=== PATIENT | female | born 1995 | race Caucasian/White ===

== ENCOUNTER 2023-12-27 07:41 | Inpatient (IN) ==
[2023-12-27] MEDS ORDERED: LIDOCAINE 1% LOCAL 20 ML VIAL INFIL PRN (08:28)
[2023-12-27] MEDS ORDERED: OXYTOCIN 30 UNITS/NSS 30 UNITS/500 ML BAG IV PRN (08:28)
--- NOTE | 2023-12-27 08:43 | History & Physical Report ---
Date of Service December 27, 2023 Assessment & Plan (1) Encounter for induction of labor: Plan: 28 years G1 at 40w4d WOG here for IOL today. -No leakage -BG: A+/ GBS neg IOL: Powell's kept yesterday evening; planned for Pitocin IOL today. Pitocin as per protocol. 9:30am: 4 cm, AROM was attempted by Dr. Melendez -FHT: Category 1 -No established risk factors. -Will reassess regularly Admission and Anticipated Discharge Date Admission Date: December 27, 2023 History of Present Illness Chief Complaint: G1 at 40+3 weeks POG here for IOL Primary Care Provider: NO PCP G1 at 40+3 weeks EGA here for IOL. Planned IOL, Powell Bulb kept yesterday, here for Pitocin IOL today. Vitals: BP: 134/89 MM Hg ( 100/60 -140/100) Pulse: 102- 105/min FHT monitor: In Place (Category 1) Contraction:+mild BG: A +ve/ GBS: -ve No other risk factors Echo done ANC (family h/o Bicuspid Aortic Valve): Mid Pulmonary Valve Insuffciency, Recommends PP Echo for infant Recent Ob USG: Cephalic/Posterior Placenta/DVP:WNL/EFW:42% Allergies Allergy/AdvReac Type Severity Reaction Status Date / Time No Known Allergies Allergy Verified 12/24/23 09:57 Home Medications Medication Instructions Recorded Confirmed Type PNV [id number] PO 05/08/23 12/24/23 History [ Gummies] Patient History Medical History (Updated 12/27/23 @ 08:48 by Arlene Tellez MD) Perioral dermatitis (01/29/23) Family history of bicuspid aortic valve (01/29/23) Body mass index [BMI] 23.0-23.9, adult (01/29/23) Acne Surgical History No history of previous surgery Family History (Updated 05/08/23 @ 10:53 by Soraida Dyson) Denies family history of Ovarian cancer Breast cancer Colorectal cancer Social History (Updated 05/08/23 @ 10:54 by Soraida Dyson) Smoking Status: Never smoker Do You Dip or Chew Tobacco: No; Hx Alcohol Use: No Hx Substance Use: No Preferred Language: Sami Communication Ability: Effective Social Welfare Clerk Required: No Beliefs That Will Affect Care: None marital status: marital status details: Timmy Vargas (27) [phone] Current Living Situation: Spouse Current Living Situation Comment: lives with spouse, dog current occupational status: employed 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 Denies SOB, difficulty breathing, chest pain, palpitations, and chest pressure. Denies breast pain. Denies dysuria. Denies headache or changes in vision. Physical Exam Physical Exam: General: Alert and oriented. No acute distress CV: Regular rate and rhythm. No murmurs. Respiratory: CTA bilaterally. No rhonchi, wheezes, or crackles. No increased work of breathing. Abdomen: Gravid; Soft, nontender upon palpation Pelvic: Dilated [address] Melendez Lower extremities: mild LE edema. No deep calf pain. Clay's negative bilaterally. Results & Data Vital Signs (Past 12 Hours) Vital Signs Temp Pulse Resp BP 12/27/23 08:26 36.8 C 20 12/27/23 08:04 105 H 134/89 Supervising Physician Co-Signing Physician Notes Resident Physician Supervision Note: I was present with Dr. Tellez during the history and exam. I discussed the case with the resident and agree with the findings and plan as documented in the note. Any exceptions or clarifications are listed here: 28yo at 40+wks for planned induction. Doing well. No rom. No vb. No ctx. Had powell last pm and it fell out. PNC uncomplicated, due to family history of bicuspid aortic valve echo done and ? mild PV insufficiency, reeval pp and maternal echo was wnl. PNL Rh pos, RI, GBS NEG Abd soft gravid nt, efw 7-8#. ext tr edema. nt calves. FHTs categ 1. No ctx. sve 4/50/-2 arom, min fluid. Pt admitted. Pitocin induction. Epidural when desires. FHTs categ 1. Documented By: Adry Melendez MD, FACOG
[2023-12-27 09:07] LABS: Hematocrit (blood only) 32.4 % (37.0-47.0); Hemoglobin 11.4 g/dl (12.0-16.0); Mean Corpuscular Hemoglobin 31.7 pg (25.0-34.0); Mean Corpuscular Hgb Conc 35.2 g/dL (32.0-36.0); Platelet Count 124 K/uL (130-400); RDW Coefficient of Variation 13.1 % (11.5-14.5); RDW Standard Deviation 43.3 fL (36.4-46.3); White Blood Count 9.55 K/ul (4.8-10.8)
[2023-12-27] MEDS: LACTATED RINGER'S 1,000 ML IV PRN (09:23)
[2023-12-27] MEDS: OXYTOCIN 30 UNITS/NSS 30 UNITS/500 ML BAG IV PRN ×2 (10:17→23:17)
[2023-12-27] MEDS ORDERED: NALOXONE HCL 1 MG in SODIUM CHLORIDE 0.9% 1,000 ML IV PRN (14:14)
[2023-12-27] MEDS ORDERED: SODIUM CHLORIDE 0.9% PF INJ 10 ML VIAL EPI PRN (14:14)
[2023-12-27] MEDS ORDERED: NALOXONE HCL 0.4 MG/1 ML VIAL/CARP IV PRN (14:14)
[2023-12-27] MEDS ORDERED: ROPIVACAINE 0.5% PF 5 MG/ML 20 ML VIAL EPI PRN (14:14)
[2023-12-27] MEDS ORDERED: diphenhydrAMINE 50 MG/ML VIAL IV PRN (14:14)
[2023-12-27] MEDS ORDERED: fentaNYL citrate PF 100 MCG/2 ML VIAL EPI PRN (14:14)
[2023-12-27] MEDS ORDERED: LIDOCAINE 2% MPF LOCAL 5 ML VIAL EPI PRN (14:14)
[2023-12-27] MEDS ORDERED: BUPIVACAINE 0.25% PF 30 ML VIAL EPI PRN (14:14)
[2023-12-27] MEDS ORDERED: ePHEDrine sulfate 50 MG/ML AMP IV PRN (14:14)
[2023-12-27] MEDS ORDERED: NALBUPHINE HCL 5 MG in SYRINGE 0 ML IV PRN (14:14)
--- NOTE | 2023-12-27 14:18 | Anesthesiology Consultation ---
Date of Service December 27, 2023 Assessment & Plan (1) Encounter for pre-operative examination: Chart Review Chart Review: Patient NOT seen in Pre Admission Testing and Acceptable Risk for Labor Epidural Consults Requested none History Height/Weight Height: 5 ft 7 in Weight: 87.543 kg Allergies Allergy/AdvReac Type Severity Reaction Status Date / Time No Known Allergies Allergy Verified 12/24/23 09:57 Medications Home Medications Medication Instructions Recorded Confirmed Last Taken PNV [id number] PO 05/08/23 12/24/23 12/26/23 [ Gummies] Active Medications Generic Name Dose Route Start Last Admin Trade Name Freq PRN Reason Stop Dose Admin Oxytocin 30 units in 500 mls @ 5 mls/hr 12/27/23 08:28 12/27/23 11:35 Pitocin 30 Units/Nss IV 12/29/23 08:27 0.3 units/hr .Q24H PRN 5 mls/hr Labor Induction/Augmentation Titration Protocol 0.3 UNITS/HR Lactated Ringer's 1,000 mls @ 125 mls/hr 12/27/23 08:28 12/27/23 13:28 Lr IV 12/29/23 08:27 999 mls/hr .Q8H PRN Infusion L&D Protocol Protocol Past Medical History Medical History (Updated 12/27/23 @ 14:16 by Isiah Cardozo MD) Encounter for pre-operative examination Perioral dermatitis (01/29/23) Family history of bicuspid aortic valve (01/29/23) Body mass index [BMI] 23.0-23.9, adult (01/29/23) Acne Exercise / Class Metabolic Activity II 4-5 Yardwork/Stairs/Walk up hill Past Family History Family History Denies family history of Ovarian cancer Breast cancer Colorectal cancer Past Surgical History Surgical History No history of previous surgery Past Anesthesia History No Hx of Anesthesia Complications and No Family Hx of Anesthesia Complications History of PONV No Hx of PONV and No Hx of Motion Sickness Social History Smoking Status: Never smoker Do You Dip or Chew Tobacco: No Hx Alcohol Use: No Hx Substance Use: No substance use type: does not use Physical Exam Vital Signs Last Vital Signs Temp 37.1 C 12/27/23 12:00 Pulse 96 H 12/27/23 12:49 Resp 18 12/27/23 14:00 BP 125/76 12/27/23 12:49 Testing Laboratory Results 12/27/23 08:48
[2023-12-27] MEDS: fentANYL 2 MCG/ML BUPIVacaine 0.125%-NSS 100ML BAG EPI PRN (14:23)
[2023-12-27] MEDS: fentaNYL citrate PF 100 MCG/2 ML VIAL EPI STA (14:24)
[2023-12-27] MEDS: LIDOCAINE 2%/EPINEPHRINE 1:200,000 20 ML PF EPI STA (14:24)
[2023-12-27] MEDS: BUPIVACAINE 0.25% PF 30 ML VIAL EPI STA (14:24)
[2023-12-27] MEDS: LIDOCAINE 2%/EPINEPHRINE 1:200,000 20 ML PF ONE (14:37)
[2023-12-27] MEDS: BUPIVACAINE 0.25% PF 30 ML VIAL ONE (14:37)
[2023-12-27] MEDS: fentaNYL citrate PF 100 MCG/2 ML VIAL ONE (14:37)
[2023-12-27] MEDS: SODIUM CHLORIDE 0.9% PF INJ 10 ML VIAL ONE (14:37)
[2023-12-27] MEDS: fentANYL 2 MCG/ML BUPIVacaine 0.125%-NSS 100ML BAG ONE (14:37)
[2023-12-27] MEDS: ePHEDrine sulfate 50 MG/ML AMP ONE (14:37)
[2023-12-27] MEDS: SODIUM CHLORIDE 0.9% PF INJ 10 ML VIAL EPI STA (14:41)
[2023-12-27] MEDS ORDERED: NURSING L&D Epidural Breakthrough Pain Update ONE (17:57)
[2023-12-27] MEDS: ONDANSETRON INJ 2 MG/ML 2 ML VIAL IV PRN (18:33)
--- NOTE | 2023-12-27 22:54 | Delivery Summary ---
Vaginal Delivery Summary Date of Service December 27, 2023 Vaginal Delivery Summary DIAGNOSES: 1. Pelayo intrauterine at 40w4d gestation. 2. Induction of Labor for postdates . 3. Group B Streptococcus Neg. PROCEDURE: Spontaneous vaginal delivery and repair of 1st degree posterior vaginal laceration. SURGEON: Maryana Davies MD. WOOD DRILL OPERATOR: None. QUANTITATIVE BLOOD LOSS: 321 mL. COMPLICATIONS: None. PLACENTA: Spontaneous and intact with a 3-vessel cord. DISPOSITION: Stable to labor and delivery. DESCRIPTION: The patient pushed well and brought the head to in DOA position. The 's head was allowed to deliver with contraction force and no further active pushing, with the perineum protected during this time. There was one nuchal cord. The left shoulder was anterior. The shoulders and body delivered without any difficulty, and the infant was placed on the maternal abdomen. It was vigorous and moving all extremities, and making respiratory efforts. The cord was doubly clamped by the MD and then cut by the FOB. The placenta delivered spontaneously and was noted to be intact and with a 3VC. The cervix, vagina and perineum were examined and were found to have a posterior vaginal laceration that did not extend onto the perineum, but was not hemostatic, thus was repaired with 3-0 vicryl in a running locked manner. Anorectal injury was excluded by exam. The fundus was firm and lochia minimal immediately after delivery. [facility] Vaginal Delivery Charge Vaginal Delivery Codes: 34773 global code for the antepartum, delivery, and post-
[2023-12-27] MEDS ORDERED: BENZOCAINE 20% SPRY 85 APPLN/85 GM CAN EXT PRN (22:55)
[2023-12-27] MEDS ORDERED: DIPHTHER/TETAN/PERTUS Vaccine (Tdap, Adol/Adult) 0.5mL IM ONE (22:55)
[2023-12-27] MEDS ORDERED: oxyCODONE/ACETAMINOPHEN 5mg/325mg TAB PO PRN (22:55)
[2023-12-27] MEDS ORDERED: HYDROCORTISONE ACETATE 25 MG SUPP PR PRN (22:55)
[2023-12-27] MEDS ORDERED: LACTATED RINGER'S 1,000 ML IV SCH (23:00)
[2023-12-27] MEDS: IBUPROFEN 600 MG TAB PO PRN (23:06)
[2023-12-27] MEDS: ACETAMINOPHEN 325 MG TAB PO PRN (23:06)
--- NOTE | 2023-12-28 06:25 | Obstetrical Progress Note ---
Date of Service December 28, 2023 Assessment & Plan (1) Normal labor and delivery: -8 hours PPD following Induced VD. - Passed stool/ urine : normal - Lochia: Mod - Vitals : Stabvle - Nipple soreness and cream: Adviused Lanolin cream more frequent and cotton bras instead of very tight polyster one she is using. - Likely Dis tomorrow Subjective Patient is a 28 yo fe who is now PPD #1following Induced vaginal delivery at 40+ weeks. Reports feeling well this morning. She has some abdominal cramping and pain well managed on analgesics. Voiding Normally. Tolerating regular meals overnight and able to ambulate some. She has passed gas and had bowel movem ents. Persistent lochia with some improvement this morning. Currently Breast feeding. C/O Nipple Sore and crack Review of Systems Denies fever, chills, sweats. Denies SOB, difficulty breathing, chest pain, palpitations, and chest pressure. Denies breast pain. Denies dysuria. Denies headache or changes in vision. Physical Exam General: Alert and oriented. No acute distress. CV: Regular rate and rhythm. No murmurs. Respiratory: CTA bilaterally. No rhonchi, wheezes, or crackles. No increased work of breathing. Abdomen: Positive bowel sounds. Soft, nontender, non distended. Uterus: Fundus firm and palpable few cm below the umbilicus. Lower extremities: No LE edema. Results & Data Vital Signs (Past 12 Hours) Vital Signs Temp Pulse Pulse Resp BP BP Pulse Ox 12/28/23 04:35 36.7 C 82 14 114/69 12/28/23 01:30 36.9 C 90 18 118/75 12/28/23 00:45 37.2 C 20 12/28/23 00:45 90 101/52 L 12/28/23 00:30 91 H 116/55 L 12/28/23 00:15 20 12/28/23 00:15 88 115/56 L 12/28/23 00:00 97 H 128/63 12/27/23 23:45 20 12/27/23 23:45 81 12/27/23 23:45 118/58 L 12/27/23 23:30 20 12/27/23 23:30 206 H 12/27/23 23:30 130/57 L 12/27/23 23:15 20 12/27/23 23:15 96 H 12/27/23 23:15 133/69 12/27/23 23:06 93 H 12/27/23 23:06 128/62 12/27/23 23:00 18 12/27/23 22:45 20 12/27/23 22:45 109 H 12/27/23 22:45 144/65 H 12/27/23 22:43 83 L 12/27/23 22:43 111 H 12/27/23 22:41 86 L 12/27/23 22:41 114 H 12/27/23 22:38 100 12/27/23 22:38 114 H 12/27/23 22:38 153/69 H 12/27/23 22:33 100 12/27/23 22:33 112 H 12/27/23 22:28 100 12/27/23 22:28 101 H 12/27/23 22:26 86 L 12/27/23 22:26 148 H 12/27/23 22:23 100 12/27/23 22:23 123 H 12/27/23 22:23 119/57 L 12/27/23 22:15 82 L 12/27/23 22:15 117 H 12/27/23 22:10 81 L 12/27/23 22:10 117 H 12/27/23 22:05 100 12/27/23 22:05 96 H 12/27/23 22:00 100 12/27/23 22:00 95 H 12/27/23 21:55 100 12/27/23 21:55 90 12/27/23 21:53 93 H 12/27/23 21:53 117/60 12/27/23 21:50 100 12/27/23 21:50 92 H 12/27/23 21:45 100 12/27/23 21:45 90 12/27/23 21:40 100 12/27/23 21:40 90 12/27/23 21:38 91 H 12/27/23 21:38 121/64 12/27/23 21:35 100 12/27/23 21:35 90 12/27/23 21:30 20 12/27/23 21:30 20 12/27/23 21:30 100 12/27/23 21:30 93 H 12/27/23 21:25 97 12/27/23 21:25 99 H 12/27/23 21:25 86 12/27/23 21:25 133/71 12/27/23 21:20 96 12/27/23 21:20 94 H 12/27/23 21:15 100 12/27/23 21:15 100 H 12/27/23 21:10 100 12/27/23 21:10 101 H 12/27/23 21:08 110 H 12/27/23 21:08 134/72 12/27/23 21:05 100 12/27/23 21:05 103 H 12/27/23 21:00 20 12/27/23 21:00 37.3 C 20 12/27/23 21:00 100 12/27/23 21:00 98 H 12/27/23 20:55 100 12/27/23 20:55 108 H 12/27/23 20:55 103 H 12/27/23 20:55 127/76 12/27/23 20:50 100 12/27/23 20:50 104 H 12/27/23 20:45 100 12/27/23 20:45 96 H 12/27/23 20:40 100 12/27/23 20:40 91 H 12/27/23 20:38 118 H 12/27/23 20:38 100/65 12/27/23 20:35 100 12/27/23 20:35 95 H 12/27/23 20:30 20 12/27/23 20:30 20 12/27/23 20:30 100 12/27/23 20:30 90 12/27/23 20:25 100 12/27/23 20:25 88 12/27/23 20:23 96 H 12/27/23 20:23 110/62 12/27/23 20:20 100 12/27/23 20:20 87 12/27/23 20:15 100 12/27/23 20:15 98 H 12/27/23 20:10 100 12/27/23 20:10 96 H 12/27/23 20:08 93 H 12/27/23 20:08 110/64 12/27/23 20:05 100 12/27/23 20:05 94 H 12/27/23 20:00 18 12/27/23 20:00 18 12/27/23 20:00 100 12/27/23 20:00 92 H 12/27/23 19:55 100 12/27/23 19:55 98 H 12/27/23 19:50 100 12/27/23 19:50 91 H 12/27/23 19:46 86 L 12/27/23 19:46 96 H 12/27/23 19:45 99 12/27/23 19:45 109 H 12/27/23 19:40 99 12/27/23 19:40 87 12/27/23 19:39 88 12/27/23 19:39 123/60 12/27/23 19:35 100 12/27/23 19:35 87 12/27/23 19:30 18 12/27/23 19:30 18 12/27/23 19:30 97 12/27/23 19:30 89 12/27/23 19:26 85 L 12/27/23 19:26 91 H 12/27/23 19:25 100 12/27/23 19:25 101 H 12/27/23 19:24 90 12/27/23 19:24 115/59 L 12/27/23 19:20 100 12/27/23 19:20 92 H 12/27/23 19:15 100 12/27/23 19:15 89 12/27/23 19:13 86 L 12/27/23 19:13 95 H 12/27/23 19:10 100 12/27/23 19:10 91 H 12/27/23 19:09 96 H 12/27/23 19:09 137/70 12/27/23 19:05 96 12/27/23 19:05 92 H 12/27/23 19:04 36.9 C 18 12/27/23 19:00 20 12/27/23 19:00 20 12/27/23 19:00 100 12/27/23 19:00 100 H 12/27/23 18:55 100 12/27/23 18:55 102 H 12/27/23 18:53 107 H 12/27/23 18:53 133/76 12/27/23 18:50 96 12/27/23 18:50 94 H 12/27/23 18:45 96 12/27/23 18:45 96 H 12/27/23 18:40 100 12/27/23 18:40 88 12/27/23 18:38 93 H 12/27/23 18:38 133/70 12/27/23 18:35 98 12/27/23 18:35 103 H 12/27/23 18:30 20 12/27/23 18:30 20 12/27/23 18:30 100 12/27/23 18:30 102 H 12/27/23 18:25 100 12/27/23 18:25 114 H 12/27/23 18:24 118 H 12/27/23 18:24 129/72 O2 Del Method 12/28/23 04:35 Room Air 12/28/23 01:30 Room Air 12/28/23 00:45 12/28/23 00:45 12/28/23 00:30 12/28/23 00:15 12/28/23 00:15 12/28/23 00:00 12/27/23 23:45 12/27/23 23:45 12/27/23 23:45 12/27/23 23:30 12/27/23 23:30 12/27/23 23:30 12/27/23 23:15 12/27/23 23:15 12/27/23 23:15 12/27/23 23:06 12/27/23 23:06 12/27/23 23:00 12/27/23 22:45 12/27/23 22:45 12/27/23 22:45 12/27/23 22:43 12/27/23 22:43 12/27/23 22:41 12/27/23 22:41 12/27/23 22:38 12/27/23 22:38 12/27/23 22:38 12/27/23 22:33 12/27/23 22:33 12/27/23 22:28 12/27/23 22:28 12/27/23 22:26 12/27/23 22:26 12/27/23 22:23 12/27/23 22:23 12/27/23 22:23 12/27/23 22:15 12/27/23 22:15 12/27/23 22:10 12/27/23 22:10 12/27/23 22:05 12/27/23 22:05 12/27/23 22:00 12/27/23 22:00 12/27/23 21:55 12/27/23 21:55 12/27/23 21:53 12/27/23 21:53 12/27/23 21:50 12/27/23 21:50 12/27/23 21:45 12/27/23 21:45 12/27/23 21:40 12/27/23 21:40 12/27/23 21:38 12/27/23 21:38 12/27/23 21:35 12/27/23 21:35 12/27/23 21:30 12/27/23 21:30 12/27/23 21:30 12/27/23 21:30 12/27/23 21:25 12/27/23 21:25 12/27/23 21:25 12/27/23 21:25 12/27/23 21:20 12/27/23 21:20 12/27/23 21:15 12/27/23 21:15 12/27/23 21:10 12/27/23 21:10 12/27/23 21:08 12/27/23 21:08 12/27/23 21:05 12/27/23 21:05 12/27/23 21:00 12/27/23 21:00 12/27/23 21:00 12/27/23 21:00 12/27/23 20:55 12/27/23 20:55 12/27/23 20:55 12/27/23 20:55 12/27/23 20:50 12/27/23 20:50 12/27/23 20:45 12/27/23 20:45 12/27/23 20:40 12/27/23 20:40 12/27/23 20:38 12/27/23 20:38 12/27/23 20:35 12/27/23 20:35 12/27/23 20:30 12/27/23 20:30 12/27/23 20:30 12/27/23 20:30 12/27/23 20:25 12/27/23 20:25 12/27/23 20:23 12/27/23 20:23 12/27/23 20:20 12/27/23 20:20 12/27/23 20:15 12/27/23 20:15 12/27/23 20:10 12/27/23 20:10 12/27/23 20:08 12/27/23 20:08 12/27/23 20:05 12/27/23 20:05 12/27/23 20:00 12/27/23 20:00 12/27/23 20:00 12/27/23 20:00 12/27/23 19:55 12/27/23 19:55 12/27/23 19:50 12/27/23 19:50 12/27/23 19:46 12/27/23 19:46 12/27/23 19:45 12/27/23 19:45 12/27/23 19:40 12/27/23 19:40 12/27/23 19:39 12/27/23 19:39 12/27/23 19:35 12/27/23 19:35 12/27/23 19:30 12/27/23 19:30 12/27/23 19:30 12/27/23 19:30 12/27/23 19:26 12/27/23 19:26 12/27/23 19:25 12/27/23 19:25 12/27/23 19:24 12/27/23 19:24 12/27/23 19:20 12/27/23 19:20 12/27/23 19:15 12/27/23 19:15 12/27/23 19:13 12/27/23 19:13 12/27/23 19:10 12/27/23 19:10 12/27/23 19:09 12/27/23 19:09 12/27/23 19:05 12/27/23 19:05 12/27/23 19:04 12/27/23 19:00 12/27/23 19:00 12/27/23 19:00 12/27/23 19:00 12/27/23 18:55 12/27/23 18:55 12/27/23 18:53 12/27/23 18:53 12/27/23 18:50 12/27/23 18:50 12/27/23 18:45 12/27/23 18:45 12/27/23 18:40 12/27/23 18:40 12/27/23 18:38 12/27/23 18:38 12/27/23 18:35 12/27/23 18:35 12/27/23 18:30 12/27/23 18:30 12/27/23 18:30 12/27/23 18:30 12/27/23 18:25 12/27/23 18:25 12/27/23 18:24 12/27/23 18:24
[2023-12-28 06:40] LABS: Hematocrit (blood only) 29.7 % (37.0-47.0); Hemoglobin 10.4 g/dl (12.0-16.0); Mean Corpuscular Hemoglobin 31.6 pg (25.0-34.0); Mean Corpuscular Volume 90.3 fL (80.0-100.0); Mean Platelet Volume 12.5 fL (9.4-12.4); Platelet Count 130 K/uL (130-400); RDW Standard Deviation 42.4 fL (36.4-46.3); Red Blood Count 3.29 M/uL (4.20-5.40); White Blood Count 15.11 K/ul (4.8-10.8)
[2023-12-28] MEDS: PRENATAL VITAMIN 1 TAB PO SCH (08:30)
[2023-12-28] MEDS: DOCUSATE SODIUM 100 MG CAP PO SCH (08:30)
[2023-12-28 09:24] VITALS: RESP 16
--- NOTE | 2023-12-28 09:38 | Anesthesia Procedure Note ---
Date of Service December 28, 2023 Anesthesia Post Epidural Note Vital Signs Vital Signs: Temp Pulse Resp BP Pulse Ox O2 Del Method 36.7 C 80 16 109/73 98 Room Air 12/28/23 08:27 12/28/23 08:27 12/28/23 08:27 12/28/23 08:27 12/28/23 08:27 12/28/23 08:27 Pain Intensity Lower Abdomen: Pain Intensity: 0 Head: Pain Intensity: 4 Notes Mental Status: alert / awake / arousable and participated in evaluation Nausea / Vomiting: adequately controlled Pain: adequately controlled Airway Patency, RR, SpO2: stable & adequate BP & HR: stable & adequate Hydration State: stable & adequate Neuraxial Anesthesia: was administered and sensory block is resolving Anesthetic Complications: no major complications apparent Epidural: Removed without complications and With tip intact
[2023-12-28 15:38] VITALS: O2SAT 98
[2023-12-28] MEDS: bisacodyL 5 MG TABEC PO SCH (20:20)
[2023-12-29 00:06] VITALS: TEMP 98.2
--- NOTE | 2023-12-29 06:01 | Obstetrical Progress Note ---
Date of Service December 29, 2023 Assessment & Plan (1) Normal labor and delivery: Plan dc home, f/u 6wks, instructions reviewed. breast, rhpos, ri. Subjective Ambulation: ambulating normally Voiding: no voiding problems Diet Tolerance:: regular diet Lochia:: Small Feeding Type:: breast feeding no concerns Constitutional: + as per Subjective / HPI Physical Exam Constitutional WD/WN, vitals as above Respiratory normal respiratory effort, lungs clear to auscultation Cardiovascular Rate/Rhythm: regular rate and regular rhythm Gastrointestinal (Abdomen) Inspection/Auscultation: abdomen normal to inspection Percussion/Palpation: abdomen soft Fundus firm 2cm down Musculoskeletal nt calves no edema Neurologic grossly normal Psychiatric A+Ox3, euthymic affect Results & Data Vital Signs (Past 12 Hours) Vital Signs Temp Pulse Resp BP O2 Del Method 12/28/23 23:50 98.2 F 72 16 110/68 Room Air 12/28/23 20:15 98.1 F 76 16 114/75 Room Air
[2023-12-29 06:30] LABS: Hematocrit (blood only) 31.1 % (37.0-47.0); Hemoglobin 10.7 g/dl (12.0-16.0)
[2023-12-29 09:03] VITALS: BP 119/78; PULSE 67
[2023-12-29] MEDS ORDERED: bisacodyL 10 MG SUPP PR PRN (22:55)
== END 2023-12-29 11:25 | disposition home or self-care (01) | DRG 807 ==
LOC: 4S1 07:41 → 4E2 12-28 01:25